=== PATIENT | male | born 1995 | race Two or more races ===

== ENCOUNTER 2019-05-22 17:38 | Emergency (ER) | payer OTHER ==
[~2019-05-22] VITALS: Ht 170.2 cm; Wt 74.8 kg
[2019-05-22] MEDS ORDERED: ALBU8.5H8 INH (18:05)
--- NOTE | 2019-05-22 18:05 | NUR ---
PT TO ER BED 08 C/O COUGH X 7 DAYS. HX OF ASTHMA AND STATES RAN OUT OF INHALER. PLACED ON MONITOR. VSS. AWAITING MD CHAPARRO.
--- NOTE | 2019-05-22 18:22 | NUR ---
[employer]O PRECISION AGRICULTURE SPECIALIST AT BEDSIDE FOR EVAL.
[2019-05-22] MEDS ORDERED: IPRATROPIUM NEB FS 0.5 MG/2.5 ML AMPUL.NEB NEB ONE (18:30)
[2019-05-22] MEDS ORDERED: ALBUTEROL FS 2.5 MG/3 ML VIAL.NEB NEB ONE (18:30)
--- NOTE | 2019-05-22 18:33 | NUR ---
RT AT BEDSIDE FOR BREATHING TREATMENT
[2019-05-22] MEDS ORDERED: ALBUTEROL FS 2.5 MG/3 ML VIAL.NEB ONE ×2 (18:36→18:55)
[2019-05-22] MEDS ORDERED: IPRATROPIUM NEB FS 0.5 MG/2.5 ML AMPUL.NEB ONE ×2 (18:36→18:55)
--- NOTE | 2019-05-22 19:13 | NUR ---
REPORT GIVEN TO CREATIVE MANAGER NURSE UTE FOR ANA.
[2019-05-22 19:45] VITALS: BP 121/72
== END 2019-05-22 19:46 | disposition home or self-care (01) ==
LOC: ER 17:47
DX: J45.901 Unspecified asthma with (acute) exacerbation (principal); F17.200 Nicotine dependence, unspecified, uncomplicated; Z79.899 Other long term (current) drug therapy
CPT/HCPCS: 71045-TC

== ENCOUNTER 2021-11-18 12:04 | Emergency (ER) | payer OTHER ==
[~2021-11-18] VITALS: Ht 167.6 cm; Wt 79.4 kg
[~2021-11-18 12:04] MED LIST: ALBU8.5H8 INH
--- NOTE | 2021-11-18 12:15 | NUR ---
UA SENT TO LAB
--- NOTE | 2021-11-18 12:20 | NUR ---
RECEived pt 26 yrs male came from home c/o abdominal pain for 5 days no N/V
--- NOTE | 2021-11-18 12:27 | NUR ---
IV LINE ESTABLISHED ON LAC #20, BLOOD DRAWN AND SENT TO LAB
--- NOTE | 2021-11-18 12:30 | NUR ---
BLOOD DROW AND SENT TO LAB
[2021-11-18 12:39] LABS: BASOPHILS % (AUTO) 0.6 % (0.0-2.0); EOSINOPHILS % (AUTO) 5.9 % (0.0-6.0); HEMATOCRIT 49 % (39-51); HEMOGLOBIN 16.2 g/dL (13.5-17.5); LYMPHOCYTES # (AUTO) 1.6 K/uL (0.8-4.8); LYMPHOCYTES % (AUTO) 32.8 % (20.0-44.0); MEAN CORPUSCULAR HGB CONC 33 g/dl (31.0-36.0); MEAN CORPUSCULAR VOLUME 88 fL (80-96); MONOCYTES # (AUTO) 0.4 K/uL (0.1-1.30); MONOCYTES % (AUTO) 8.5 % (2.0-12.0); NEUTROPHILS # (AUTO) 2.6 K/uL (1.8-8.9); NEUTROPHILS % (AUTO) 52.2 % (43.0-81.0); PLATELET COUNT (AUTO) 249 K/uL (150-450); RED BLOOD CELL COUNT(AUTO) 5.52 MIL/uL (4.5-6.0); WHITE BLOOD COUNT (AUTO) 4.9 K/uL (4.3-11.0)
[2021-11-18 12:55] LABS: BILIRUBIN,URINE NEGATIVE (NEGATIVE); COLOR,URINE YELLOW (YELLOW); LEUKOCYTE ESTERASE ,URINE NEGATIVE (NEGATIVE); NITRITE, URINE NEGATIVE (NEGATIVE); PROTEIN,URINE NEGATIVE (NEGATIVE); UGLUCOSE NEGATIVE (NEGATIVE); UROBILINOGEN,URINE 0.2 EU/dL (0.2)
[2021-11-18] MEDS ORDERED: KETOROLAC TROMETHAMINE INJ 30 MG/ML VIAL IV ONE (13:30)
--- NOTE | 2021-11-18 13:30 | NUR ---
TO CT SCAN OF ABDOMIN
[2021-11-18 13:32] LABS: ALBUMIN 4.5 g/dL (3.4-5.0); BILIRUBIN,DIRECT 0.1 mg/dL (0.0-0.2); BILIRUBIN,TOTAL 0.6 mg/dL (0.2-1.0); CALCIUM, SERUM 8.9 mg/dL (8.5-10.1); POTASSIUM 3.6 mmol/L (3.5-5.1); TOTAL PROTEIN, SERUM 8.6 g/dL (6.4-8.2)
[2021-11-18] MEDS ORDERED: IBUP-1957 PO (13:46)
[2021-11-18] MEDS ORDERED: DICY20TA11 PO (13:46)
[2021-11-18] MEDS ORDERED: KETOROLAC TROMETHAMINE 15 MG/ML VIAL ONE (13:54)
--- NOTE | 2021-11-18 14:07 | NUR ---
IV removed. Catheter intact and site benign. Pressure and 4x4 applied to site. No bleeding noted.Patient discharged to home in stable condition. Written and verbal after care instructions given. Patient verbalizes understanding of instruction.
[2021-11-18 14:09] VITALS: BP 114/65
== END 2021-11-18 14:10 | disposition home or self-care (01) ==
LOC: ER 12:14
DX: R10.32 Left lower quadrant pain (principal); J45.909 Unspecified asthma, uncomplicated; F17.200 Nicotine dependence, unspecified, uncomplicated; Z79.899 Other long term (current) drug therapy
CPT/HCPCS: 99284; 74176; 96374; 85025; 80048; 83690; 80076; 81003; 36415; J1885